=== PATIENT | female | born 2000 | race Hispanic/Latino ===

== ENCOUNTER 2022-03-23 21:15 | Emergency (ER) | payer MEDICAID, OTHER ==
[~2022-03-23] VITALS: Ht 157.5 cm; Wt 61.7 kg
[2022-03-23 21:17] VITALS: BP 115/76
[2022-03-23 21:36] LABS: APPEARANCE,URINE Cloudy (CLEAR); BILIRUBIN,URINE Negative (NEGATIVE); COLOR,URINE Yellow (YELLOW); GLUCOSE, URINE (UA) Negative (NEGATIVE); KETONES,URINE Negative (NEGATIVE); LEUKOCYTE ESTERASE ,URINE Large (NEGATIVE); NITRATE,URINE Negative (NEGATIVE); OCCULT BLOOD,URINE Moderate (NEGATIVE); PH,URINE 7.5 (5.0-8.0); PROTEIN,URINE Negative (NEGATIVE)
[2022-03-23 21:38] LABS: HCG,QUAL RESULT NEGATIVE (NEGATIVE)
[2022-03-23 21:46] LABS: BACTERIA,URINE Few /HPF (None Seen); SQUAMOUS EPITHELIAL CELL,UR Few /HPF (0-2)
[2022-03-23] MEDS ORDERED: PHEN-847 PO (22:10)
[2022-03-23] MEDS ORDERED: CEPH500B PO (22:10)
[2022-03-23] MEDS ORDERED: CEFTRIAXONE 1G VIAL IM ONE (22:30)
[2022-03-23] MEDS ORDERED: PHENAZOPYRIDINE HCL 200 MG TABLET PO ONE (22:30)
[2022-03-23] MEDS ORDERED: LIDOCAINE HCL 1% 10 ML VIAL ONE (22:45)
== END 2022-03-23 23:08 | disposition home or self-care (01) ==
LOC: EDH 21:15
DX: N39.0 Urinary tract infection, site not specified (principal)
CPT/HCPCS: 99283; 87077; 87088; 87186; 81001; 81025; 96372; J0696; J3490

== ENCOUNTER 2024-02-06 22:00 | Emergency (ER) | payer OTHER ==
[~2024-02-06] VITALS: Ht 157.5 cm; Wt 77.1 kg
[~2024-02-06 22:00] MED LIST: CEPH500B PO; PHEN-847 PO
[2024-02-06 22:22] LABS: RAPID GROUP A STREP negative (NEGATIVE)
[2024-02-06 22:26] LABS: SARS-CoV-2, RNA, NAAT NEGATIVE SARS CoV-2 (NEGATIVE)
[2024-02-06 22:32] LABS: INFLUENZA TYPE A Negative For Type A (NEGATIVE); INFLUENZA TYPE B Negative For Type B (NEGATIVE)
[2024-02-06 23:05] LABS: BASOPHILS # (AUTO) 0.03 K/uL (0.00-0.20); BASOPHILS % (AUTO) 0.3 % (0.0-5.0); EOSINOPHILS # (AUTO) 0.16 K/uL (0.00-0.70); EOSINOPHILS % (AUTO) 1.5 % (0.0-8.0); HEMATOCRIT 41.7 % (36-48); IMMATURE GRANULOCYTE ABSOLUTE 0.06 K/uL (0-1); LYMPHOCYTES # (AUTO) 2.3 K/uL (1.0-4.8); MEAN CORPUSCULAR HEMOGLOBIN 30.1 pg (27.0-33.0); MEAN CORPUSCULAR HGB CONC 34.8 g/dL (32.0-36.0); MEAN CORPUSCULAR VOLUME 86.7 fL (80-100); MONOCYTES # (AUTO) 0.6 K/uL (0.1-1.0); MONOCYTES % (AUTO) 5.1 % (3.0-13.0); NEUTROPHILS # (AUTO) 7.8 K/uL (1.8-7.7); NEUTROPHILS % (AUTO) 71.6 % (40.0-77.0); PLATELET COUNT (AUTO) 360 K/uL (130-400); RED BLOOD CELL COUNT(AUTO) 4.81 MIL/uL (4.00-5.50); RED CELL DISTRIBUTION WIDTH 12.2 % (11.0-15.5); WHITE BLOOD COUNT (AUTO) 10.9 K/uL (4.8-10.8)
[2024-02-06 23:08] LABS: APPEARANCE,URINE CLEAR (CLEAR); BILIRUBIN,URINE NEGATIVE (NEGATIVE); COLOR,URINE COLORLESS (YELLOW); GLUCOSE, URINE (UA) NEGATIVE (NEGATIVE); KETONES,URINE NEGATIVE (NEGATIVE); LEUKOCYTE ESTERASE ,URINE NEGATIVE Leu/uL (NEGATIVE); NITRATE,URINE NEGATIVE (NEGATIVE); OCCULT BLOOD,URINE NEGATIVE (NEGATIVE); PROTEIN,URINE NEGATIVE (NEGATIVE); UROBILINOGEN,URINE 0.2 mg/dL (0.2-1.0)
[2024-02-06 23:09] LABS: ADD UA MICROSCOPIC NO
[2024-02-06 23:10] LABS: HCG,QUALITATIVE URINE NEGATIVE (NEGATIVE)
[2024-02-06 23:18] LABS: CREATININE 0.8 mg/dL (0.5-1.0); POTASSIUM 3.8 mmol/L (3.5-5.1)
[2024-02-06 23:23] LABS: ALBUMIN 3.8 g/dL (3.5-5.0); BILIRUBIN,TOTAL 0.7 mg/dL (0.2-1.0)
[2024-02-07] MEDS ORDERED: ONDA-243 PO (01:01)
[2024-02-07] MEDS: ONDANSETRON 4MG INJ IVP ONE (01:04)
[2024-02-07] MEDS: KETOROLAC 30MG VIAL (30MG/ML) IVP ONE (01:05)
[2024-02-07] MEDS: 0.9%NACL 1000ML 1,000 ML IV ONE (01:05)
[2024-02-07 02:13] VITALS: BP 112/69; PULSE 99; RESP 16; O2SAT 100
== END 2024-02-07 02:14 | disposition home or self-care (01) ==
LOC: EDH 22:00
DX: B34.9 Viral infection, unspecified (principal); M54.9 Dorsalgia, unspecified; R19.7 Diarrhea, unspecified; Z20.822 Contact with and (suspected) exposure to COVID-19; Z79.899 Other long term (current) drug therapy
CPT/HCPCS: 99284; 87635; 80053; 83690; 85025; 87880; 87804 ×2; 81003; 81025; 36415; 96374; 96361; 96375; J7030; J2405; J1885